=== PATIENT | female | born 1965 | race American Indian/Alaskan Native ===

== ENCOUNTER 2022-03-24 13:27 | Inpatient (IN) | payer SELFPAY ==
--- NOTE | 2022-03-24 14:29 | Event Note ---
ED Screening Note Date of service: 03/24/22 Time: 14:28 ED Screening Note: 56 Y F sent to ER for stroke rule out due to weakness and eye pain concerns. patient report cloudiness for couple of days. left side weakness that is her baseline. negative fast exam This initial assessment/diagnostic orders/clinical plan/treatment(s) is/are subject to change based on patients health status, clinical progression and re- assessment by fellow clinical providers in the ED. Further treatment and workup at subsequent clinical providers discretion. Patient/guardian urged not to elope from the ED as their condition may be serious if not clinically assessed and managed. Initial orders include: Active Orders 24 hr Category Date Time Status CT head/brain wo con Stat Cat Scan 03/24/22 14:26 Ordered Complete Blood Count Auto Diff Stat Lab 03/24/22 14:26 Ordered Comprehensive Metabolic Panel Stat Lab 03/24/22 14:26 Ordered Partial Thromboplastin Time Stat Lab 03/24/22 14:26 Ordered Prothrombin Time INR Stat Lab 03/24/22 14:26 Ordered
[2022-03-24 14:50] LABS: Basophils # (Auto) 0.1 K/mm3 (0.0-0.1); Basophils % (Auto) 0.6 % (0.0-1.8); Eosinophils # (Auto) 0.1 K/mm3 (0.0-0.4); Eosinophils % (Auto) 1.3 % (0.0-4.3); Hematocrit 36.5 % (30.3-42.9); Hemoglobin 12.9 gm/dl (10.1-14.3); Lymphocytes # (Auto) 3.7 K/mm3 (1.2-5.4); Lymphocytes % (Auto) 38.8 % (13.4-35.0); Mean Corpuscular HGB Conc 35 % (30-34); Mean Corpuscular Volume 80 fl (79-97); Monocytes # (Auto) 0.9 K/mm3 (0.0-0.8); Monocytes % (Auto) 9.8 % (0.0-7.3); Platelet Count 290 K/mm3 (140-440); Red Blood Count 4.55 M/mm3 (3.65-5.03); Red Cell Distribution Width 13.8 % (13.2-15.2)
[2022-03-24 14:53] LABS: INR 0.74 (0.87-1.13)
[2022-03-24 14:54] LABS: Partial Thromboplastin Time 24.7 Sec. (24.2-36.6)
[2022-03-24 15:19] LABS: Alanine Aminotransferase 8 units/L (7-56); Albumin 3.7 g/dL (3.9-5); BUN/Creatinine Ratio 13; Blood Urea Nitrogen 12 mg/dL (7-17); Calcium 9.5 mg/dL (8.4-10.2); Hemolysis Index 10
--- NOTE | 2022-03-24 15:41 | Cat Scan Report ---
CT HEAD WITHOUT CONTRAST INDICATION / CLINICAL INFORMATION: weakness, dizziness. TECHNIQUE: All CT scans at this location are performed using CT dose reduction for ALARA by means of automated e xposure control. COMPARISON: None available. FINDINGS: HEMORRHAGE: No evidence of intracranial hemorrhage or extra-axial fluid collection. EXTRA-AXIAL SPACES: Cortical sulci, sylvian fissures and basilar cisterns have an unremarkable appear ance. VENTRICULAR SYSTEM: The third and lateral ventricles are of normal size and configuration. CEREBRAL PARENCHYMA: No areas of abnormal brain parenchymal attenuation are identified. There is no i ndication of recent infarction. Incidental note is made of right-sided physiological calcification in the right gangliocapsular region. MIDLINE SHIFT OR HERNIATION: There is no mass effect. CEREBELLUM / BRAINSTEM: Brainstem has an unremarkable appearance. Mild cerebellar inferomedial atroph y is noted. MIDLINE STRUCTURES:No abnormalities of the pituitary gland or pineal region are identified. INTRACRANIAL VESSELS:No abnormalities are identified on this noncontrast head CT. ORBITS: visualized portions of the orbits have an unremarkable appearance. SOFT TISSUES of HEAD: No significant abnormality. CALVARIUM: Evaluation of bone windows reveals no abnormalities. PARANASAL SINUSES / MASTOID AIR CELLS: Visualized portions of the paranasal sinuses are free from inf lammatory mucosal disease. Mastoid air cells are normally pneumatized. IMPRESSION: 1. No significant intercranial abnormality on head CT without contrast. Signer Name: Maxwell Zhou MD Signed: 03/24/2022 3:37 PM Workstation Name: [id number]
[2022-03-25] MEDS ORDERED: INSULIN REGULAR, HUMAN 100 UNITS/1 ML IV ONE (03:30)
[2022-03-25] MEDS ORDERED: INSULIN REGULAR, HUMAN 100 UNITS/1 ML SUB-Q ONE (03:30)
[2022-03-25] MEDS ORDERED: SODIUM CHLORIDE 0.9% 1000 ML 1,000 ML IV ONE (03:31)
--- NOTE | 2022-03-25 03:36 | Emergency Department Report ---
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 Pt was asked to follow up by her Opthamologist. No VILLAGOMEZ or other body or limb weakness or tingling reported. No other modifying or associated factors reported. - Related Data Allergies/Adverse Reactions: Allergies Allergy/AdvReac Type Severity Reaction Status Date / Time No Known Allergies Allergy Verified 03/24/22 14:25 ED Review of Systems ROS: Stated complaint: NEED MRI Other details as noted in HPI Comment: All other systems reviewed and negative Eyes: vision change. denies: eye pain, eye discharge ED Past Medical Hx - Past Medical History Hx Hypertension: Yes Hx Diabetes: Yes Additional medical history: retinal detachment. glaucoma ED Neuro Physical Exam - General Limitations: No Limitations General appearance: alert, in no apparent distress Suspected Stroke: No - Head Head exam: Present: normal inspection - Eye Eye exam: Present: normal appearance (left side ) Pupils: Present: normal accommodation (left side ) - ENT ENT exam: Present: normal exam, normal orophraynx, mucous membranes moist - Neck Neck exam: Present: normal inspection. Absent: tenderness - Respiratory Respiratory exam: Present: normal lung sounds bilaterally. Absent: respiratory distress, accessory muscle use - Cardiovascular Cardiovascular Exam: Present: regular rate, normal rhythm, normal heart sounds - GI/Abdominal GI/Abdominal exam: Present: soft, normal bowel sounds. Absent: distended, tenderness - Extremities Exam Extremities exam: Present: normal inspection, normal capillary refill. Absent: tenderness, pedal edema - Back Exam Back exam: Absent: tenderness - Neurological Exam Neurological exam: Present: alert - NIHSS Assessment Interval: Baseline 1a. Level of Consciousness: alert/keenly responsive 1b. LOC Questions: answers both correctly 1c. LOC Commands: performs tasks correctly 2. Best Gaze: normal (left) 3. Visual: no visual loss (left eye) 4. Facial Palsy: normal symmetrical movement (left eye) 5b. Motor Arm Right: no drift 5a. Motor Arm Left: no drift 6a. Motor Leg Left: no drift 6b. Motor Leg Right: no drift 7. Limb Ataxia: absent 8. Sensory: normal 9. Best Language: no aphasia 10. Dysarthria: normal 11. Extinction/Inattention: no abnormality Total Score: 0 Stroke Severity: No Stroke Symptoms - Psychiatric Psychiatric exam: Present: normal affect, normal mood - Skin Skin exam: Present: warm, normal color ED Course Vital Signs 03/24/22 03/24/22 14:19 20:00 Temperature 98.4 F 98.4 F Pulse Rate 89 98 H Respiratory 16 20 Rate Blood Pressure 183/105 Blood Pressure 169/95 [Right] O2 Sat by Pulse 95 100 Oximetry - Consultations Consultation #1: 03/25/22 03:48 Dr Hu consulted who accept pt for further evaluation and treatment -- for complete neuro workup -- including MRI -- - Lab Data Result diagrams: 03/24/22 14:28 03/24/22 14:28 Lab Results 03/24/22 03/24/22 03/24/22 Range/Units 14:28 14:28 14:28 WBC 9.5 (4.5-11.0) K/mm3 RBC 4.55 (3.65-5.03) M/mm3 Hgb 12.9 (10.1-14.3) gm/dl Hct 36.5 (30.3-42.9) % MCV 80 (79-97) fl MCH 28 (28-32) pg MCHC 35 H (30-34) % RDW 13.8 (13.2-15.2) % Plt Count 290 (140-440) K/mm3 Lymph % (Auto) 38.8 H (13.4-35.0) % Gilmer % (Auto) 9.8 H (0.0-7.3) % Eos % (Auto) 1.3 (0.0-4.3) % Baso % (Auto) 0.6 (0.0-1.8) % Lymph # (Auto) 3.7 (1.2-5.4) K/mm3 Gilmer # (Auto) 0.9 H (0.0-0.8) K/mm3 Eos # (Auto) 0.1 (0.0-0.4) K/mm3 Baso # (Auto) 0.1 (0.0-0.1) K/mm3 Seg Neutrophils % 49.5 (40.0-70.0) % Seg Neutrophils # 4.7 (1.8-7.7) K/mm3 PT 11.2 L (12.2-14.9) Sec. INR 0.74 L (0.87-1.13) APTT 24.7 (24.2-36.6) Sec. Sodium 133 L (137-145) mmol/L Potassium 4.5 (3.6-5.0) mmol/L Chloride 94.1 L (98-107) mmol/L Carbon Dioxide 25 (22-30) mmol/L Anion Gap 18 mmol/L BUN 12 (7-17) mg/dL Creatinine 0.9 (0.6-1.2) mg/dL Estimated GFR > 60 ml/min BUN/Creatinine Ratio 13 % Glucose 541 H* (65-100) mg/dL Calcium 9.5 (8.4-10.2) mg/dL Total Bilirubin 0.60 (0.1-1.2) mg/dL AST 9 (5-40) units/L ALT 8 (7-56) units/L Alkaline Phosphatase 125 (35-129) units/L Total Protein 6.6 (6.3-8.2) g/dL Albumin 3.7 L (3.9-5) g/dL Albumin/Globulin Ratio 1.3 % - Radiology Data FINDINGS: HEMORRHAGE: No evidence of intracranial hemorrhage or extra-axial fluid collection. EXTRA-AXIAL SPACES: Cortical sulci, sylvian fissures and basilar cisterns have an unremarkable appearance. VENTRICULAR SYSTEM: The third and lateral ventricles are of normal size and configuration. CEREBRAL PARENCHYMA: No areas of abnormal brain parenchymal attenuation are identified. There is no indication of recent infarction. Incidental note is made of right-sided physiological calcification in the right gangliocapsular region. MIDLINE SHIFT OR HERNIATION: There is no mass effect. CEREBELLUM / BRAINSTEM: Brainstem has an unremarkable appearance. Mild ce rebellar inferomedial atrophy is noted. MIDLINE STRUCTURES:No abnormalities of the pituitary gland or pineal region are identified. INTRACRANIAL VESSELS:No abnormalities are identified on this noncontrast head CT. ORBITS: visualized portions of the orbits have an unremarkable appearance. SOFT TISSUES of HEAD: No significant abnormality. CALVARIUM: Evaluation of bone windows reveals no abnormalities. PARANASAL SINUSES / MASTOID AIR CELLS: Visualized portions of the paranasal si nuses are free from inflammatory mucosal disease. Mastoid air cells are normally pneumatized. IMPRESSION: 1. No significant intercranial abnormality on head CT without contrast. - Medical Decision Making here with possible stroke -- with history of retinal detachment and blindness on the right eye -- so will go ahead and get CT head and if negative will admit for MRI in AM-- labs reviewed and noted to be unremarkable except BS 541 --given ivf ns 1L bolu s and 10 units SQ and IV x 1-- Dr Hu consulted Critical care attestation.: If time is entered above; I have spent that time in minutes in the direct care of this critically ill patient, excluding procedure time. ED Disposition Clinical Impression: Blurred vision, left eye, Hyperglycemia Disposition: ADMITTED INPATIENT Is pt being admited?: Yes Does the pt Need Aspirin: No Condition: Stable Time of Disposition: 03:49
[2022-03-25] MEDS ORDERED: ACETAMINOPHEN 325 MG TAB PO PRN ×2 (03:50→05:20)
[2022-03-25] MEDS ORDERED: MORPHINE 2 MG/1 ML INJ IV PRN ×2 (03:50→05:20)
[2022-03-25] MEDS ORDERED: ONDANSETRON 4 MG/2 ML INJ IV PRN ×2 (03:50→05:20)
[2022-03-25] MEDS ORDERED: MORPHINE 4 MG/1 ML INJ IV PRN (05:20)
[2022-03-25] MEDS ORDERED: ALBUTEROL 2.5 MG/3 ML NEBU IH PRN (05:20)
--- NOTE | 2022-03-25 05:30 | History and Physical Report ---
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 Pt was asked to follow up by her Opthamologist. No VILLAGOMEZ or other body or limb weakness or tingling reported. No other modifying or associated factors reported. Initial CT scan of the head shows no significant intracranial abnormality on head CT without contrast. Patient blood glucose is also 541. We are going to admit the patient we will put the patient on aspirin and statin, insulin sliding scale and neurology evaluation Past History Past Medical History: diabetes, hypertension, other (Glucoma retinal degene rative detachment) Past Surgical History: Other (Retinal detachment, glaucoma) Social history: no significant social history Family history: diabetes Medications and Allergies Allergies Allergy/AdvReac Type Severity Reaction Status Date / Time No Known Allergies Allergy Verified 03/24/22 14:25 Active Meds: Active Medications Acetaminophen (Acetaminophen 325 Mg Tab) 650 mg PO Q4H PRN PRN Reason: Pain MILD(1-3)/Fever >100.5/VILLAGOMEZ Morphine Sulfate (Morphine 2 Mg/1 Ml Inj) 2 mg IV Q4H PRN PRN Reason: Pain, Moderate (4-6) Ondansetron HCl (Ondansetron 4 Mg/2 Ml Inj) 4 mg IV Q8H PRN PRN Reason: Nausea And Vomiting Sodium Chloride (Sodium Chloride 0.9% 10 Ml Flush Syringe) 10 ml IV BID EVON Sodium Chloride (Sodium Chloride 0.9% 10 Ml Flush Syringe) 10 ml IV PRN PRN PRN Reason: LINE FLUSH Review of Systems All systems: negative Constitutional: other (Left eye blurred vision for couple of days) Exam - Constitutional Vitals: Temp Pulse Resp BP Pulse Ox 98.4 F 98 H 20 183/105 100 03/24/22 20:00 03/24/22 20:00 03/24/22 20:00 03/24/22 20:00 03/24/22 20:00 General appearance: Present: no acute distress, well-nourished - EENT Eyes: Present: PERRL ENT: hearing intact, clear oral mucosa - Neck Neck: Present: supple, normal ROM - Respiratory Respiratory effort: normal Respiratory: bilateral: CTA - Cardiovascular Heart Sounds: Present: S1 & S2. Absent: rub, click - Extremities Extremities: pulses symmetrical, No edema Peripheral Pulses: within normal limits - Abdominal General gastrointestinal: Present: soft, non-tender, non-distended, normal bowel sounds Female genitourinary: Present: normal - Integumentary Integumentary: Present: clear, warm, dry - Musculoskeletal Musculoskeletal: gait normal, strength equal bilaterally - Psychiatric Psychiatric: appropriate mood/affect, intact judgment & insight - Neurologic Neurologic: CNII-XII intact, moves all extremities Results - Labs CBC & Chem 7: 03/24/22 14:28 03/24/22 14:28 Labs: Laboratory Last Values WBC 9.5 K/mm3 (4.5-11.0) 03/24/22 14:28 RBC 4.55 M/mm3 (3.65-5.03) 03/24/22 14:28 Hgb 12.9 gm/dl (10.1-14.3) 03/24/22 14:28 Hct 36.5 % (30.3-42.9) 03/24/22 14:28 MCV 80 fl (79-97) 03/24/22 14:28 MCH 28 pg (28-32) 03/24/22 14:28 MCHC 35 % (30-34) H 03/24/22 14:28 RDW 13.8 % (13.2-15.2) 03/24/22 14:28 Plt Count 290 K/mm3 (140-440) 03/24/22 14:28 Lymph % (Auto) 38.8 % (13.4-35.0) H 03/24/22 14:28 Wilkin % (Auto) 9.8 % (0.0-7.3) H 03/24/22 14:28 Eos % (Auto) 1.3 % (0.0-4.3) 03/24/22 14:28 Baso % (Auto) 0.6 % (0.0-1.8) 03/24/22 14:28 Lymph # (Auto) 3.7 K/mm3 (1.2-5.4) 03/24/22 14:28 Wilkin # (Auto) 0.9 K/mm3 (0.0-0.8) H 03/24/22 14:28 Eos # (Auto) 0.1 K/mm3 (0.0-0.4) 03/24/22 14:28 Baso # (Auto) 0.1 K/mm3 (0.0-0.1) 03/24/22 14:28 Seg Neutrophils % 49.5 % (40.0-70.0) 03/24/22 14:28 Seg Neutrophils # 4.7 K/mm3 (1.8-7.7) 03/24/22 14:28 PT 11.2 Sec. (12.2-14.9) L 03/24/22 14:28 INR 0.74 (0.87-1.13) L 03/24/22 14:28 APTT 24.7 Sec. (24.2-36.6) 03/24/22 14:28 Sodium 133 mmol/L (137-145) L 03/24/22 14:28 Potassium 4.5 mmol/L (3.6-5.0) 03/24/22 14:28 Chloride 94.1 mmol/L (98-107) L 03/24/22 14:28 Carbon Dioxide 25 mmol/L (22-30) 03/24/22 14:28 Anion Gap 18 mmol/L 03/24/22 14:28 BUN 12 mg/dL (7-17) 03/24/22 14:28 Creatinine 0.9 mg/dL (0.6-1.2) 03/24/22 14:28 Estimated GFR > 60 ml/min 03/24/22 14:28 BUN/Creatinine Ratio 13 % 03/24/22 14:28 Glucose 541 mg/dL (65-100) H* 03/24/22 14:28 Calcium 9.5 mg/dL (8.4-10.2) 03/24/22 14:28 Total Bilirubin 0.60 mg/dL (0.1-1.2) 03/24/22 14:28 AST 9 units/L (5-40) 03/24/22 14:28 ALT 8 units/L (7-56) 03/24/22 14:28 Alkaline Phosphatase 125 units/L (35-129) 03/24/22 14:28 Total Protein 6.6 g/dL (6.3-8.2) 03/24/22 14:28 Albumin 3.7 g/dL (3.9-5) L 03/24/22 14:28 Albumin/Globulin Ratio 1.3 % 03/24/22 14:28 - Imaging and Cardiology CT Scan - head: report reviewed Assessment and Plan VTE prophylaxis?: Mechanical Plan of care discussed with patient/family: Yes - Patient Problems (1) Blurred vision, left eye Current Visit: Yes Status: Acute Plan to address problem: Admit the patient to the medical telemetry. Nothing by mouth. Aspirin 325 mg p.o. daily. Lipitor 40 mg p.o. daily. PT OT speech evaluation. MRI of the brain and MRA of the brain and neck with and without contrast. Neurology evaluation. Echocardiogram. Patient need to seen by production control pegboard clerk. (2) Hypertension Current Visit: Yes Status: Acute Plan to address problem: Labetalol 10 mg IV every 1 hours as needed. We continue the home medication. We will monitor the blood pressure closely (3) Glaucoma Current Visit: Yes Status: Acute Plan to address problem: Stable. Patient need to seen by production control pegboard clerk (4) Hyperglycemia Current Visit: Yes Status: Acute Plan to address problem: Accu-Chek every 6 hours with Humalog high-dose coverage. Diabetic education. Recheck BMP in the morning (5) DVT prophylaxis Current Visit: Yes Status: Acute Plan to address problem: SCD for DVT prophylaxis. Pepcid 20 mg IV every 12 hours for GI prophylaxis. Patient is a full code
[2022-03-25] MEDS ORDERED: DEXTROSE 50% IN WATER (25GM) 50 ML SYRINGE IV PRN (05:31)
--- NOTE | 2022-03-25 08:00 | Magnetic Resonance Report ---
MRI BRAIN WITHOUT CONTRAST, MRA HEAD WITHOUT CONTRAST INDICATION / CLINICAL INFORMATION: stroke. Left side numbness TECHNIQUE: Multiplanar, multi sequential MRI images of the brain. Routine MRA of the head is performed. 3-D/MIP reformats postprocessed. Percentage stenosis is determined by direct quantitative measurements of di stal internal carotid artery diameter compared with normal reference segments or by criteria similar to NASCET where applicable. COMPARISON: Head CT on 03/24/2022 FINDINGS: MR BRAIN: BRAIN / INTRACRANIAL CONTENTS: No acute ischemia, acute hemorrhage, mass effect, midline shift, or hy drocephalus. Expansion of the sella with flattening of the superior margin of the pituitary gland ag ain seen. No acute findings. CRANIOCERVICAL JUNCTION: No significant abnormality. VASCULAR FLOW-VOIDS: No significant abnormality. ORBITS: No significant abnormality of visualized orbits. SINUSES / MASTOIDS: No significant abnormality of visualized sinuses and mastoid air cells. ADDITIONAL FINDINGS: None. MRA HEAD: Intracranial vertebral arteries: No significant abnormality. Basilar artery: No significant abnormality. Posterior cerebral arteries: No significant abnormality. Intracranial internal carotid arteries: No significant abnormality. Anterior cerebral arteries: No developmental hypoplasia of the right A1 segment Middle cerebral arteries: No significant abnormality. Additional findings: None. IMPRESSION: 1. No acute infarct or other acute abnormality. 2. No vascular occlusion in the head. 3. Partially empty sella appearance that can be associated with idiopathic intracranial hypertension. Signer Name: Kaovn Wong MD Signed: 03/25/2022 7:56 AM Workstation Name: [employer]
[2022-03-25] MEDS: INSULIN LISPRO 100 UNIT/ML SUB-Q SCH ×3 (08:14→18:04)
[2022-03-25 08:18] LABS: Chol/HDL Ratio 6.15 %
[2022-03-25] MEDS: ASPIRIN 325 MG TAB PO SCH (12:27)
[2022-03-25] MEDS: FAMOTIDINE 20 MG/2 ML INJ IV SCH ×2 (12:28→21:24)
--- NOTE | 2022-03-25 15:01 | Consultation ---
History of Present Illness Consult date: 03/25/22 Reason for Consult: cva Chief complaint: Blurred Vision History of present illness: 56 yo right-handed female with right retinal detachment w/ blurred / limited vision, htn, dm, glaucoma, wo presents with left eye blurred vision since november 2021 but progressively getting worse over the last few months. She notes that s korin the retinal detachment 3-4 years ago that she has had limited vision at the right eye. She denies any headache; denies waking up with a headache; denies n/v. She was seen by ophthalmology and sent to the hospital for further workup for a possible stroke. She notes some tingling in her bilateral hands / weakness since November of this year. She also notes chronic left leg weakness w/ numbness/tingling at left leg, secondary to "djd" of the lower spine, per patient. She uses a "roll-aider" since she moved to [place] (in November of this year). She incidentally, notes a change in her sense of taste, on review of systems. Denies any COVID-19 symptoms. Upon ED arrival noted with a BGL of 541. Past History Past Medical History: diabetes, hypertension, other (Glucoma retinal degenerative detachment) Past Surgical History: Other (Retinal detachment, glaucoma) Social history: no significant social history Family history: diabetes Medications and Allergies Allergies Allergy/AdvReac Type Severity Reaction Status Date / Time No Known Allergies Allergy Verified 03/24/22 14:25 Active Meds: Active Medications Acetaminophen (Acetaminophen 325 Mg Tab) 650 mg PO Q4H PRN PRN Reason: Pain MILD(1-3)/Fever >100.5/VILLAGOMEZ Albuterol (Albuterol 2.5 Mg/3 Ml Nebu) 2.5 mg IH Q4HRT PRN PRN Reason: Shortness Of Breath Aspirin (Aspirin 325 Mg Tab) 325 mg PO QDAY [facility] Last Admin: 03/25/22 12:27 Dose: 325 mg Atorvastatin Calcium (Atorvastatin 40 Mg Tab) 40 mg PO QHS [facility] Dextrose (Dextrose 50% In Water (25gm) 50 Ml Syringe) 0 ml IV Q30MIN PRN; Protocol PRN Reason: Hypoglycemia Famotidine (Famotidine 20 Mg/2 Ml Inj) 20 mg IV BID [facility] Last Admin: 03/25/22 12:28 Dose: 20 mg Sodium Chloride (Nacl 0.9% 1000 Ml) 1,000 mls @ 100 mls/hr IV DIRECT EVON Insulin Human Lispro (Insulin Lispro 100 Unit/Ml) 0 unit SUB-Q Q6HR [facility]; Protocol Last Admin: 03/25/22 13:14 Dose: 10 unit Labetalol HCl (Labetalol 20 Mg/4 Ml Inj) 10 mg IV Q5MIN PRN PRN Reason: to maintain SBP < 180 Morphine Sulfate (Morphine 2 Mg/1 Ml Inj) 2 mg IV Q4H PRN PRN Reason: Pain, Moderate (4-6) Morphine Sulfate (Morphine 4 Mg/1 Ml Inj) 4 mg IV Q4H PRN PRN Reason: Pain , Severe (7-10) Ondansetron HCl (Ondansetron 4 Mg/2 Ml Inj) 4 mg IV Q8H PRN PRN Reason: Nausea And Vomiting Sodium Chloride (Sodium Chloride 0.9% 10 Ml Flush Syringe) 10 ml IV BID [facility] Last Admin: 03/25/22 12:28 Dose: 10 ml Sodium Chloride (Sodium Chloride 0.9% 10 Ml Flush Syringe) 10 ml IV PRN PRN PRN Reason: LINE FLUSH Review of Systems All systems: negative (as per hpi;) Physical Examination - Vital Signs Vital Signs: Vital Signs Temp Pulse Resp BP Pulse Ox 98.4 F 89 16 169/95 95 03/24/22 14:19 03/24/22 14:19 03/24/22 14:19 03/24/22 14:19 03/24/22 14:19 - Physical Exam Narrative exam: Gen: nad, well-nourished; Head: normocephalic; Eyes: no gaze deviation; no ptosis; ENT: normal vocalization; CVS: warm and well-perfused; Pulm: normal work of breathing; GI: appears non-distended; Ext: no cyanosis appreciated at distal extremities; Skin: no acute rash at distal extremities; Heme: no pathologic ecchymosis appreciated at distal extremities; Neuro: alert, oriented to name, month, year, no dysarthria, no aphasia, CN 2 - visual marsh intact when near the right eye or when distal (2 feet) from the left eye; only hand movement noted when hand is held 1.5 feet in front of her right eye; CN 3, 4, 6 - EOMI, CN 5 - facial sensation symmetric to light touch, CN 7 - facial movement symmetric, CN 8 - hearing grossly intact, CN 9, 10 - uvula midline, CN 11 symmetric shoulder movement, CN 12 - tongue midline; Motor - at least 4/5 strength at distal BUEs; at least 4/5 strength at LLE; 4+/5 strength at RLE; Sensory - light touch symmetric but with a proximal to distal gradient at bilateral lower extremities, Cerebellar - fnf intact but difficulty with hts bilaterally due to weakness / body habitus, Gait - deferred secondary to fall risk; Results - Laboratory Findings CBC and BMP: 03/24/22 14:28 03/24/22 14:28 Abnormal Lab Findings: Abnormal Labs 03/24/22 03/24/22 03/24/22 14:28 14:28 14:28 MCHC 35 H Lymph % (Auto) 38.8 H [place] % (Auto) 9.8 H [place] # (Auto) 0.9 H PT 11.2 L INR 0.74 L Sodium 133 L Chloride 94.1 L Glucose 541 H* POC Glucose Albumin 3.7 L Triglycerides Cholesterol LDL Cholesterol Direct 03/24/22 03/25/22 14:28 12:44 MCHC Lymph % (Auto) [place] % (Auto) [place] # (Auto) PT INR Sodium Chloride Glucose POC Glucose 432 H Albumin Triglycerides 277 H Cholesterol 246 H LDL Cholesterol Direct 160 H Assessment and Plan 56 yo right-handed female with right retinal detachment w/ blurred / limited vision, htn, dm, glaucoma, wo presents with left eye blurred vision since november 2021 but progressively getting worse over the last few months. She notes that since the retinal detachment 3-4 years ago that she has had limited vision at the right eye. She denies any headache; denies waking up with a headache; denies n/v. She was seen by ophthalmology and sent to the hospital for further workup for a possible stroke. 1. Left Eye Blurred Vision - concern is raised for a primary process; however recommend obtaining ophthalmology record to confirm no evidence of papilledema; if papilledema is noted, recommend a large volume tap for possible undiagnosed IIH (however, clinically pt denies a positional headache or any headache in general); mri brain w/ wo contrast reveals no evidence of a mass; mra/v head reveals no sinus thrombosis or avm/aneurysm (ophthalmic); ordered cta neck w/ wo contrast to confirm no evidence of ipsilateral carotid stenosis / occlusion; f/u with ophthalmology TRIXIE when discharged. 2. Bilateral Hand "Weakness" - mri cervical spine is unremarkable for an acute/subacute process; recommend outpatient emg-ncv evaluation within 2 weeks. 3. Left Leg Weakness w/ DJD - use of "roll-aider" since November of this year; mri lumbar spine shows non-emergent findings; emg-ncv evaluation within 2 weeks. 4. Peripheral Neuropathy - concern that a major component of patient's "weakness" as numbness can sometimes mimic weakness; outpatient emg-ncv evaluation / monitoring; aggressive managment of underlying glycemia. 5. DM (uncontrolled hyperglycemia on presentation) - management per primary team; likely contributing to the progressive worsening of both eyes; aim for long-term euglycemia w/ meds, diet, and exercise. 6. Hypertension - aim for normotension if cta neck w/ wo contrast reveals no significant left carotid disease. Cyrus Olea MD Neurology [id number]
--- NOTE | 2022-03-25 17:14 | Magnetic Resonance Report ---
MRI LUMBAR SPINE WITHOUT CONTRAST INDICATION / CLINICAL INFORMATION: bilateral leg weakness. TECHNIQUE: Multisequence, multiplanar images of the lumbar spine were obtained. COMPARISON: None available. FINDINGS: POSTOPERATIVE CHANGES:None ALIGNMENT: Normal alignment is maintained throughout the lumbar region. VERTEBRAE:Large benign hemangiomata of bone is demonstrated in the L3 vertebral body. Smaller hemangi omata are demonstrated elsewhere. Reactive change secondary to degenerative disc disease is observed at inferior endplate L4. No suspicious bone lesions are identified. DISC MORPHOLOGY: Disc desiccation is noted at the L4-5 level and at the lumbosacral junction. Disc he ight and signal intensity are fairly well maintained elsewhere. VISUALIZED SPINAL CORD: Distal thoracic spinal cord, conus and nerve roots of the cauda equina all gay ve an unremarkable appearance. Conus terminates at about the level of L1-2 intervertebral disc. [id number] ANALYSIS: L1-2: No significant abnormality. L2-3: No significant abnormality. L3-4: No significant abnormality. L4-5: Mild disc desiccation is noted. Bilateral facet arthropathies observed. Facet hypertrophic lee ges and bilateral facet joint effusions are demonstrated. Mild broad-based disc bulge flattens the th ecal sac slightly. There is a mild degree of central canal stenosis at the L4-5 level. The L4 nerve r oot neuroforamina are adequate in size. L5-S1: Disc desiccation is noted. There is a small high signal annular fissure at about 6:00 position . This is associated with a small central disc protrusion. There is no indication of associated theca l sac deformity or nerve root compression. Central spinal canal and neuroforamina are adequately main tained. PARASPINAL SOFT TISSUES: Evaluation of the paraspinous soft tissues reveals no definite abnormalities . IMPRESSION: 1. Degenerative changes at L4-5 and L5-S1 levels as described above. Allograft 2. Mild central canal stenosis L4-5. Signer Name: Maxwell Zhou MD Signed: 03/25/2022 5:10 PM Workstation Name: [email or web address]
--- NOTE | 2022-03-25 17:18 | Magnetic Resonance Report ---
MRI CERVICAL SPINE WITHOUT CONTRAST INDICATION / CLINICAL INFORMATION: bilateral hand weakness w/ numbness. Bilateral leg weakness. TECHNIQUE: Multisequence, multiplanar images of the cervical spine were obtained. COMPARISON: None available. FINDINGS: POSTOPERATIVE CHANGES: none CRANIOCERVICAL JUNCTION:No significant abnormality. ALIGNMENT: No significant abnormality. VERTEBRAE:A small benign hemangioma is present in the T6 vertebral body. Otherwise normal bone marrow signal is observed throughout the cervical region. CERVICAL INTERVERTEBRAL DISCS: Disc height and signal intensity are fairly well-maintained. VISUALIZED SPINAL CORD: No intrinsic cord lesions are identified. There is no indication of cord comp ression. [id number] ANALYSIS: C2-3: No significant disc abnormality, spinal canal stenosis, or neural foraminal stenosis. C3-4: Left worse than right facet arthropathy is noted. Central spinal canal and neuroforamina are ad equately maintained. C4-5: Left worse than right facet arthropathy is noted. Central spinal canal and neuroforamina are ad equately maintained. C5-6: Left worse than right facet arthropathy is noted. No indication of central canal stenosis or ne uroforaminal encroachment. C6-7: No significant disc abnormality, spinal canal stenosis, or neural foraminal stenosis. C7-T1: No significant disc abnormality, spinal canal stenosis, or neural foraminal stenosis. PARASPINAL SOFT TISSUES: No significant abnormality. Or graph additional findings: Incidental note is made of expansion of the sella turcica which is largely fluid-filled consistent with "empty sella tu rcica". IMPRESSION: 1. Left worse than right facet arthropathy at the C3-4, C4-5 and C5-6 levels. 2. No indication of disc herniation, central canal stenosis or significant neuroforaminal narrowing. Signer Name: Maxwell Zhou MD Signed: 03/25/2022 5:14 PM Workstation Name: [email or web address]
--- NOTE | 2022-03-25 17:53 | Magnetic Resonance Report ---
MRI BRAIN WITH CONTRAST INDICATION / CLINICAL INFORMATION: neoplasm. TECHNIQUE: Multiplanar, multisequence MR images of the brain were obtained. Contrast: Clairscan: 20 ml, administered intravenously. COMPARISON: MRI brain without contrast 03/25/2022 FINDINGS: Following the administration of intravenous contrast enhancement of normal vascular structures is dem onstrated. No areas of abnormal contrast enhancement are identified. IMPRESSION: 1. No areas of abnormal contrast enhancement are identified. Signer Name: Maxwell Zhou MD Signed: 03/25/2022 5:49 PM Workstation Name: [email or web address]
[2022-03-25] MEDS: SODIUM CHLORIDE 0.9% 1000 ML 1,000 ML IV SCH (18:12)
[2022-03-26] MEDS: INSULIN LISPRO 100 UNIT/ML SUB-Q SCH ×4 (00:05→21:05)
[2022-03-26] MEDS: SODIUM CHLORIDE 0.9% 1000 ML 1,000 ML IV SCH (02:50)
[2022-03-26] MEDS: FAMOTIDINE 20 MG TAB PO SCH ×2 (10:20→21:06)
[2022-03-26] MEDS: ASPIRIN 325 MG TAB PO SCH (10:20)
[2022-03-26] MEDS ORDERED: INSULIN LISPRO 100 UNIT/ML SUB-Q SCH (13:00)
--- NOTE | 2022-03-26 14:48 | Discharge Summary ---
Providers - Providers Date of Admission: 03/25/22 03:50 Date of discharge: 03/26/22 Attending physician: ADI MOJICA 03/25/22 05:20 Consult to Physician [CONS] Routine Comment: Consulting Provider: GORDO MARINELLI Physician Instructions: Reason For Exam: cva Occupational Therapy Evaluate and Treat [CONS] Routine Comment: Reason For Exam: Neuro deficits Physical Therapy Evaluation and Treat [CONS] Routine Comment: Reason For Exam: Neuro deficits 03/25/22 05:31 Consult to Dietitian/Nutrition [CONS] Routine Physician Instructions: Reason For Exam: Reason for Consult: Diet education Primary care physician: TAP OUT OPERATOR Hospitalization Condition: Stable Disposition: 01 HOME / SELF CARE / HOMELESS Core Measure Documentation - Palliative Care Palliative Care/ Comfort Measures: Not Applicable - Core Measures Any of the following diagnoses?: none Exam - Constitutional Vitals: Temp Pulse Resp BP Pulse Ox 98.3 F 87 14 168/82 96 03/26/22 08:24 03/26/22 13:00 03/26/22 04:12 03/26/22 08:24 03/26/22 13:00 General appearance: Present: no acute distress, well-nourished - EENT Eyes: Present: PERRL ENT: hearing intact, clear oral mucosa - Neck Neck: Present: supple, normal ROM - Respiratory Respiratory effort: normal Respiratory: bilateral: CTA - Cardiovascular Heart Sounds: Present: S1 & S2. Absent: rub, click - Extremities Extremities: pulses symmetrical, No edema Peripheral Pulses: within normal limits - Abdominal General gastrointestinal: Present: soft, non-tender, non-distended, normal bowel sounds Female genitourinary: Present: normal - Integumentary Integumentary: Present: clear, warm, dry - Musculoskeletal Musculoskeletal: gait normal, strength equal bilaterally - Psychiatric Psychiatric: appropriate mood/affect, intact judgment & insight - Neurologic Neurologic: CNII-XII intact, moves all extremities Plan Activity: no restrictions Diet: diabetic Special Instructions: home health RN Durable Medical Equipment Needed Upon Discharge: Walker-Standard
[2022-03-27] MEDS: SODIUM CHLORIDE 0.9% 1000 ML 1,000 ML IV SCH ×2 (05:32→16:19)
[2022-03-27] MEDS: ASPIRIN 325 MG TAB PO SCH (10:27)
[2022-03-27] MEDS: FAMOTIDINE 20 MG TAB PO SCH ×2 (10:28→22:03)
[2022-03-27] MEDS: INSULIN LISPRO 100 UNIT/ML SUB-Q SCH ×4 (10:28→22:03)
--- NOTE | 2022-03-27 11:41 | Cat Scan Report ---
CTA neck without and with intravenous contrast material CLINICAL HISTORY: Carotid stenosis or occlusion TECHNIQUE: Following acquisition of a timing bolus 0.625 mm thick contiguous axial scans were obtained from aort ic arch to the skull base during rapid bolus intravenous contrast infusion. In addition to evaluation of axial source images multiplanar reconstructions were produced and reviewed for this report. 3 shahab ne MIP reconstructions were produced and reviewed. Contrast dose report: Omnipaque 350: 100 ml, administered intravenously All CT examinations performed at this facility utilize modulated dose reduction, iterative reconstruc tion or weight-based dosing, as appropriate, to obtain a radiation dose which is as low as can reason ably be achieved. FINDINGS: Thoracic aorta: The thoracic aorta and origins of the great vessels were excluded from this study. Th e lowest image acquired is through the level of the medial clavicles above the level of the sternocla vicular joints.. Right carotid artery: No abnormalities are seen along the course of the RCCA, at the right carotid b ifurcation or along the cervical portions of the CAROL. Left carotid artery: Origin of the left common carotid artery is excluded from this examination. Calc ified atherosclerotic plaque is seen along the posterior margin of the left carotid bulb. There is no associated stenosis. No significant abnormalities are noted along the course of the visualized porti ons of the left common carotid artery, at the left carotid bifurcation or along the course of the cer vical segments of the LICA. Posterior circulation: The vertebral arteries have an unremarkable appearance. Both vertebral arteri es contribute to the basilar artery origin. The basilar artery has an unremarkable appearance. The degree of stenosis, if any, is determined utilizing NASCET like criteria. In this case there is no indication of hemodynamically significant stenosis at the carotid bifurcations or elsewhere. Evaluation of the visualized portions of the intracranial vessels is remarkable for the presence of c alcified atherosclerotic plaque along the cavernous segments of the internal carotid arteries. This e xtends up into the clinoid segment on the right. There is no associated stenosis. An intact anterior communicating artery is observed. There is no indication of intercranial stenosis or large vessel occ lusion in the regions imaged on this CTA neck examination. Evaluation of the nonvascular soft tissue structures reveal no abnormality. There is no indication of cervical lymphadenopathy. No abnormalities are seen along the course of the airway. Visualized porti ons of the parotid glands and the submandibular salivary glands have a normal appearance. Thyroid gla nd has a normal appearance. Evaluation of the lung apices reveals no evidence of lung nodule or infil trate. Evaluation of the cervical spine is limited. The posterior elements are not included in their entiret y at and below the C5 level. No indication abnormalities of the visualized cervical spine are observe d. IMPRESSION: 1. Limited study. This examination inadvertently excludes the aortic arch and origins of the great ve ssels. 2. No indication of hemodynamically significant stenosis at the carotid bifurcations or elsewhere. Signer Name: Maxwell Zhou MD Signed: 03/27/2022 11:36 AM Workstation Name: [email or web address]
[2022-03-28] MEDS ORDERED: hydrALAZINE 20 MG/1 ML INJ IV PRN (00:49)
--- NOTE | 2022-03-28 07:28 | Progress Note ---
Subjective Date of service: 03/27/22 Objective - Constitutional Vitals: Vital Signs - 12hr 03/27/22 03/27/22 03/27/22 20:21 21:03 22:00 Temperature 97.5 F L Pulse Rate 91 H 95 H Respiratory 18 Rate Blood Pressure 200/98 Blood Pressure [Right] O2 Sat by Pulse 98 100 Oximetry 03/28/22 03/28/22 03/28/22 00:43 04:10 04:12 Temperature Pulse Rate 90 113 H 114 H Respiratory 18 18 Rate Blood Pressure 204/100 199/108 Blood Pressure 160/89 [Right] O2 Sat by Pulse 91 100 96 Oximetry General appearance: Present: no acute distress, well-nourished - EENT Eyes: PERRL, EOM intact ENT: hearing intact, clear oral mucosa Ears: bilateral: normal - Neck Neck: supple, normal ROM - Respiratory Respiratory effort: normal Respiratory: bilateral: CTA - Breasts Breasts: normal - Cardiovascular Rhythm: regular Heart Sounds: Present: S1 & S2. Absent: gallop, rub Extremities: pulses intact, No edema, normal color, Full ROM - Gastrointestinal General gastrointestinal: Present: soft, non-tender, non-distended, normal bowel sounds - Genitourinary Female genitourinary: normal - Integumentary Integumentary: clear, warm, dry - Musculoskeletal Musculoskeletal: 1, strength equal bilaterally - Neurologic Neurologic: moves all extremities - Psychiatric Psychiatric: memory intact, appropriate mood/affect, intact judgment & insight - Labs CBC & Chem 7: 03/24/22 14:28 03/24/22 14:28 Labs: Abnormal lab results 03/27/22 03/27/22 03/27/22 Range/Units 07:24 12:03 16:42 POC Glucose 344 H 374 H 286 H (70-105) mg/dL 03/27/22 Range/Units 20:47 POC Glucose 273 H (70-105) mg/dL
[2022-03-28] MEDS: INSULIN LISPRO 100 UNIT/ML SUB-Q SCH ×2 (08:30→12:30)
[2022-03-28] MEDS: ASPIRIN 325 MG TAB PO SCH (09:20)
[2022-03-28] MEDS: FAMOTIDINE 20 MG TAB PO SCH (09:20)
--- NOTE | 2022-03-28 13:35 | Discharge Summary ---
Providers - Providers Date of Admission: 03/25/22 03:50 Date of discharge: 03/28/22 Attending physician: ADI MOJICA 03/25/22 05:20 Consult to Physician [CONS] Routine Comment: Consulting Provider: GORDO MARINELLI Physician Instructions: Reason For Exam: cva Occupational Therapy Evaluate and Treat [CONS] Routine Comment: Reason For Exam: Neuro deficits Physical Therapy Evaluation and Treat [CONS] Routine Comment: Reason For Exam: Neuro deficits 03/25/22 05:31 Consult to Dietitian/Nutrition [CONS] Routine Physician Instructions: Reason For Exam: Reason for Consult: Diet education Primary care physician: CLINICAL INFORMATICS DIRECTOR Hospitalization Condition: Stable Disposition: 01 HOME / SELF CARE / HOMELESS Core Measure Documentation - Palliative Care Palliative Care/ Comfort Measures: Not Applicable Exam - Constitutional Vitals: Temp Pulse Resp BP Pulse Ox 98.5 F 98 H 18 160/81 100 03/28/22 07:57 03/28/22 07:57 03/28/22 07:57 03/28/22 07:57 03/28/22 10:00 Plan Follow up with: PRIMARY CARE, [Primary Care Provider] - 7 Days Prescriptions: Aspirin 325 mg PO QDAY #100 tablet Insulin Glargine,Hum.rec.anlog [Monicaaglar Sachinikpen U-100] 30 unit SQ QAM #5 Lispro Insulin [HumaLOG] 20 unit SUB-Q AC 30 Days #2 vial AtorvaSTATin [Lipitor] 40 mg PO QHS #30 tablet
[2022-03-28 15:41] VITALS: BP 143/81
== END 2022-03-28 17:00 | disposition home or self-care (01) | DRG 125 ==
LOC: ED 13:27 → 4A 03-25 03:50
PROVIDERS: ADMIT Hospitalist; ATTEND Internal Medicine
DX: H53.8 Other visual disturbances (principal); R73.9 Hyperglycemia, unspecified; H40.9 Unspecified glaucoma; I10 Essential (primary) hypertension; E11.65 Type 2 diabetes mellitus with hyperglycemia; E11.42 Type 2 diabetes mellitus with diabetic polyneuropathy; Z83.3 Family history of diabetes mellitus
CPT/HCPCS: 36415; 70450; 70498; 70544; 70551; 70552; 72148; 72156; 80053; 80061; 82962; 85025; 85610; 85730; 93306; 94640; 99285; G0378; J3490; Q9967; A9575; C8929; J0360; J1815; J7030